=== PATIENT | female | born 2000 | race Caucasian/White ===

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

== ENCOUNTER 2018-12-12 11:24 | Emergency (ER) | payer OTHER ==
[2018-12-12 11:31] VITALS: BP 129/67
[2018-12-12] MEDS ORDERED: PROPARACAINE 0.5% OPHTH DROPS 15 ML LEFTEYE STA (12:23)
--- NOTE | 2018-12-12 12:23 | ED Physician Documentation ---
History of Present Illness - Stated complaint Stated Complaint: EYE SWOLLEN - Chief complaint Chief Complaint: Heent - History obtained from History obtained from: Patient - History of Present Illness Timing: Today - Additonal information Additional information: L eye swelling today. clear drainage. used artifical tears today. no relief. states uncomfortable feeling. Nothing makes it better or worse. Does not wear contact lenses. Does wear glasses. No trauma. No foreign objects in the eye that she is aware of. 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 Review of Systems Constitutional: denies: Fever, Chills Eyes: denies: Loss of vision, Decreased vision, Photophobia Respiratory: denies: Cough GI: denies: Nausea, Vomiting : denies: Now EGA Skin: denies: Rash PD PAST MEDICAL HISTORY - Past Medical History Past Medical History: No - Past Surgical History Past Surgical History: Yes HEENT: Tonsil/Adenoidectomy - Present Medications Home Medications: Ambulatory Orders Medication Instructions Recorded Confirmed Polymyxin B/Trimeth Ophth Drop 1 drops LEFTEYE Q3H 7 Days #1 12/12/18 [Polytrim Ophth Drops] bottle - Allergies Allergies/Adverse Reactions: Allergies Allergy/AdvReac Type Severity Reaction Status Date / Time No Known Drug Allergies Allergy Verified 12/12/18 11:31 - Social History Does the pt smoke?: No Smoking Status: Never smoker Does the pt drink ETOH?: Yes Does the pt have substance abuse?: Yes - Immunizations Immunizations are current?: Yes PD ED PE NORMAL - Vitals Vital signs reviewed: Yes - General General: Alert and oriented X 3, No acute distress - HEENT HEENT: PERRL, Moist mucous membranes, Other (Bilateral eyelids are normal. In traocular pressure is are 11 OS and 12 for OD. Small amount of fluoroscein uptake c/w corneal abrasion on the inferior aspect of the left eye. No foreign body visible.) - Neck Neck: Supple, no meningeal sign - Derm Derm: Warm and dry - Neuro Neuro: Alert and oriented X 3 Results - Vitals Vitals: Vital Signs - 24 hr 12/12/18 11:29 Temperature 36.5 C Heart Rate 64 Respiratory 18 Rate Blood Pressure 129/67 O2 Saturation 99 Oxygen O2 Source Room air PD MEDICAL DECISION MAKING - ED course Complexity details: considered differential, d/w patient ED course: Patient with a left eye corneal abrasion. Will place on Polytrim ophthalmic and follow-up with her doctor. Does not wear contacts. Patient counseled regarding signs and symptoms for which I believe and urgent re-evaluation would be necessa ry. Patient with good understanding of and agreement to plan and is comfortable going home at this time This document was made in part using voice recognition software. While efforts are made to proofread this document, sound alike and grammatical errors may occur. Departure - Departure Disposition: 01 Home, Self Care Clinical Impression: Corneal abrasion, left Qualifiers: Encounter type: initial encounter Qualified Code(s): S05.02XA - Injury of conjunctiva and corneal abrasion without foreign body, left eye, initial encounter Condition: Good Instructions: ED Eye Injury Corneal Abrasion Follow-Up: Johnnie Gilman DO [Primary Care Provider] - Within 1 week Prescriptions: Polymyxin B/Trimeth Ophth Drop [Polytrim Ophth Drops] 1 drops LEFTEYE Q3H 7 Days #1 bottle Comments: Use the eyedrops as prescribed. Return if you worsen. Follow-up with your doctor for further care or if you are not improving in the next few days.
== END 2018-12-12 12:54 | disposition home or self-care (01) ==
LOC: ED 11:24
DX: S05.02XA Injury of conjunctiva and corneal abrasion without foreign body, left eye, initial encounter (principal); X58.XXXA Exposure to other specified factors, initial encounter
CPT/HCPCS: 99282; 99283; J3490

== ENCOUNTER 2019-08-31 08:00 | Outpatient (CLI) | payer MEDICAID, OTHER | END 2019-08-31 23:59 | disposition home or self-care (01) | LOC: LAB.R 08:00 | PROVIDERS: ATTEND Physician Assistant Medical | DX: R30.0 Dysuria (principal) | CPT/HCPCS: 87086 ==

== ENCOUNTER 2019-09-12 08:00 | Outpatient (CLI) | payer MEDICAID | END 2019-09-12 23:59 | disposition home or self-care (01) | LOC: LAB.R 08:00 | PROVIDERS: ATTEND Family Medicine | DX: R30.0 Dysuria (principal) | CPT/HCPCS: 87086 ==

== ENCOUNTER 2019-10-27 15:34 | Outpatient (CLI) | payer MEDICAID ==
--- NOTE | 2019-10-27 16:24 | XRAY Report ---
PROCEDURE: Abdomen 2 View X-Ray INDICATIONS: BLOATING R14.0 TECHNIQUE: 2 views of the abdomen were acquired. COMPARISON: None. FINDINGS: Surgical changes and devices: None. Bowel: No pneumoperitoneum. Increased stool throughout the right colon, transverse, descending colon . Relative possibly of small bowel gas limits evaluation for small bowel obstruction. Soft tissues: No masses; visualized solid organ contours appear normal in size. No suspicious abdom inal calcifications. Bones: No suspicious bony abnormalities. Lung bases are clear. IMPRESSION: 1. Increased stool throughout the colon is suspicious for constipation. Correlate clinically. 2. Relative possibility of small bowel gas limits evaluation for small bowel obstruction. However, no dilated loops of bowel are identified. 3. No pneumoperitoneum. Reviewed by: Austin Gayle MD on 10/27/2019 4:23 PM PDT Approved by: Austin Gayle MD on 10/27/2019 4:23 PM PDT Station ID: [id number]
== END 2019-10-27 23:59 | disposition home or self-care (01) ==
LOC: DI.S 15:34
PROVIDERS: ATTEND Physician Assistant Medical
DX: R14.0 Abdominal distension (gaseous) (principal); K59.00 Constipation, unspecified
CPT/HCPCS: 74019

== ENCOUNTER 2021-06-04 17:36 | Outpatient (CLI) | payer MEDICAID ==
[2021-06-07 12:16] LABS: NIL 0.04 IU/mL; TB2-NIL <0.00 IU/mL
== END 2021-06-04 17:37 | disposition home or self-care (01) ==
LOC: LAB.S 17:36
PROVIDERS: ATTEND Family Medicine
DX: Z11.1 Encounter for screening for respiratory tuberculosis (principal)
CPT/HCPCS: 36415; 86480

== ENCOUNTER 2021-09-30 08:00 | Outpatient (CLI) | payer MEDICAID | END 2021-09-30 23:59 | disposition home or self-care (01) | LOC: LAB.S 08:00 | PROVIDERS: ATTEND Emergency Medicine | DX: L03.032 Cellulitis of left toe (principal) | CPT/HCPCS: 87070; 87181; 87205 ==